=== PATIENT | female | born 1945 | race Caucasian/White ===

== ENCOUNTER 2021-12-28 07:56 | Outpatient (CLI) | payer OTHER | END 2021-12-28 08:02 | disposition home or self-care (01) | LOC: RX STUDY 07:56 | PROVIDERS: ATTEND Internal Medicine Gastroenterology | DX: R13.10 Dysphagia, unspecified (principal) ==

== ENCOUNTER 2024-09-10 07:12 | Outpatient (CLI) | payer OTHER | END 2024-09-10 07:13 | disposition home or self-care (01) | LOC: NUCLEAR 07:12 | PROVIDERS: ATTEND Internal Medicine Gastroenterology | DX: K31.84 Gastroparesis (principal) | CPT/HCPCS: 78264; A9541 ==